=== PATIENT | male | born 1940 | race Two or more races ===

== ENCOUNTER 2019-10-04 11:14 | Inpatient (IN) | payer OTHER ==
[~2019-10-04] VITALS: Ht 165.1 cm; Wt 76.2 kg
[2019-10-04] MEDS ORDERED: FORTAMET1000 MG (11:29)
--- NOTE | 2019-10-04 12:21 | NUR ---
PACIENTE ALERTA Y ORIENTADO EN L[place] CARSON ESFERAS, EL MISMO CON REFERIDO R/O DE CHF. SE REALIZA EKG Y SE PRESENTA A . PACIENTE COLOCADO EN AREA DE CHEST PAIN CONECTADO A MONITOR CARDIACO Y OXIMETRIA DE PULSO. SE OBSERVA PACIENTE CON FATIGA LEVE. SE BOB EN POSICION ROCHA EN ESPERA DE EVALUACION MEDICA.
--- NOTE | 2019-10-04 12:47 | NUR ---
PTE EVALUADO POR EL DR NICOLE QUIEN ORDENA EL [place]. SE ORIENTA SOBRE EL MISMO, LO CUAL REFIERE ENTENDER. MS N ANNY REALIZA PRUEBAS DE LABORATORIO Y CANALIZA EN MANO LT #18 EL MISMO PATENTE Y DENVER DE EDEMA O ERITEMA. SE ADMINISTRA MEDICAMENTO MUNIRA ORDEN MEDICA Y SIGUIENDO MEDIDAS ASEPTICAS. SE MANTIENE PTE BAJO OBSERVACION EN YUNIEL NIVEL MAS BAJO, LUGO DE IDENTIFICACION Y BARANDAS ELEVADAS, CONECTADO A MONITOR CARDIACO Y OXIMETRIA DE PULSO.
--- NOTE | 2019-10-04 15:58 | NUR ---
3:00PM SE RECIBE PTE ALERTA Y ORIENTADO X3 EN YUNIEL CON BARANDAS ELEVADAS. SE RECIBE PTE CONECTADO A MONITOR CARDIACO Y OXIMETRIA. SE RECIBE PTE CANALIZADO EN MANO IZQUIERDA AREA DENVER DE EDEMA Y DE ENROJECIMIENTO. 3:30PM SE LE NOTIFICA A BRADICARDIA DEL PTE HASTA 35P SINUSAL[address] DR. NICOLE REFIERE QUE SE MANTENGA PTE BAJO OBSERVACION.
--- NOTE | 2019-10-04 16:43 | NUR ---
SE RECIBE PTE DESDE LA UNIDAD DE CHEST PAIN A ICU/2, PTE MASCULINO DE 81 YRS,PTE ALERTA X 3, SE ACOMODA EN CAMA ICU/2 # 3 CON BARANDAS ELEVADAS POR CASTRO SEGURIDAD,SE CONECTA A MONITOR CARDIACO CON OXIMETRIA DE PULSO CONTINUO,PTE H/L PATENTE Y DENVER DE EDEMA Y/O ERITEMA EN AREA DE VENOPUNCION,PTE ORINANDO ESPONTANEO, SE ORIENTA A PTE Y A FAMILIAR SOBRE NORMAS DE LA UNIDAD EL CUAL REFIEREN ENTENDER,PTE EN ESPERA DE CONSULTA DE MEDICINA INTERNA,SE OBSERVARAN POR CAMBIOS EN CASTRO CONDICION DE MAYANK.
--- NOTE | 2019-10-04 17:27 | NUR ---
SE LE OFRECE A PTE ALIMENTOS EL CUAL TOLERA.
[2019-10-04] MEDS ORDERED: ARICEPT10 MG (17:41)
[2019-10-04] MEDS ORDERED: LIPITOR40 MG (17:42)
[2019-10-04] MEDS ORDERED: TRADJENTA5 MG (17:42)
[2019-10-04] MEDS ORDERED: FOLIC ACID20 MG (17:42)
[2019-10-04] MEDS ORDERED: ASPIR 8181 MG (17:43)
[2019-10-04] MEDS ORDERED: METFORMIN HCL1000 M2 (17:43)
[2019-10-04] MEDS ORDERED: ZESTORETIC 20-1 EAC1 (17:43)
[2019-10-04] MEDS ORDERED: GLIMEPIRIDE4 MG (17:44)
[2019-10-04] MEDS ORDERED: AZOR 10-40 MG1 EACH (17:44)
[2019-10-04] MEDS ORDERED: HYDRALAZINE HCL50 MG (17:44)
[2019-10-04] MEDS ORDERED: ISOSORBIDE DINI30 MG (17:45)
[2019-10-04] MEDS ORDERED: MICROZIDE12.5 MG (17:45)
[2019-10-04] MEDS ORDERED: CARVEDILOL ER40 MG (17:45)
[2019-10-04] MEDS ORDERED: TAMS0.4C (17:46)
--- NOTE | 2019-10-04 17:52 | NUR ---
ESPOSA DE PACIENTE ENTREGA LISTA DE MEDICAMENTOS Y SE DOCUMENTA EN EL SISTEMA.
[2019-10-06] MEDS ORDERED: CARVEDILOL ER40 MG PO (08:19)
[2019-10-06] MEDS ORDERED: LASIX40 MG PO (08:19)
[2019-10-06] MEDS ORDERED: IRBESARTAN150 MG PO (08:19)
[2019-10-06] MEDS ORDERED: LIPITOR40 MG PO (08:19)
== END 2019-10-06 13:03 | disposition home or self-care (01) | DRG 293 ==
LOC: ER 11:14 → MEDI 21:00 → SEC-K 21:00 → MEDI 23:55
PROVIDERS: ADMIT Internal Medicine
PROC: 4A12X4Z Monitoring of Cardiac Electrical Activity, External Approach (ICD-10-PCS; principal; 2019-10-05)
PROC: B246ZZZ Ultrasonography of Right and Left Heart (ICD-10-PCS; 2019-10-05)
DX: I11.0 Hypertensive heart disease with heart failure (principal); I50.20 Unspecified systolic (congestive) heart failure; I34.0 Nonrheumatic mitral (valve) insufficiency; I70.0 Atherosclerosis of aorta; I07.1 Rheumatic tricuspid insufficiency; E11.9 Type 2 diabetes mellitus without complications

== ENCOUNTER 2021-04-23 13:58 | Inpatient (IN) | payer OTHER ==
[~2021-04-23] VITALS: Ht 165.1 cm; Wt 80.7 kg
[~2021-04-23 13:58] MED LIST: ARICEPT10 MG; ASPIR 8181 MG; AZOR 10-40 MG1 EACH; CARVEDILOL ER40 MG; CARVEDILOL ER40 MG PO; FOLIC ACID20 MG; FORTAMET1000 MG; GLIMEPIRIDE4 MG; HYDRALAZINE HCL50 MG; IRBESARTAN150 MG PO; ISOSORBIDE DINI30 MG; LASIX40 MG PO; LIPITOR40 MG; LIPITOR40 MG PO; METFORMIN HCL1000 M2; MICROZIDE12.5 MG; TAMS0.4C; TRADJENTA5 MG; ZESTORETIC 20-1 EAC1
[2021-04-23] MEDS ORDERED: ELIQUIS2.5 MG (14:25)
[2021-04-23] MEDS ORDERED: HYDRALAZINE HCL50 MG PO (14:26)
--- NOTE | 2021-04-23 15:28 | NUR ---
EVALUA PTE. SE EDUCA A PTE SOBRE [place] MEDICO. PTE REFIERE COMPRENDER. SE REALIZAN MUESTRAS DE LABORATORIO BAJO MEDIDAS ASEPTICAS. SE ADMINISTRA IV'S MUNIRA ORDEN MEDICA. SE NOTIFICA CT.
[2021-04-24] MEDS ORDERED: LISINOPRIL5 MG (11:30)
[2021-04-24] MEDS ORDERED: CLOPIDOGREL BIS75 MG (11:30)
[2021-04-24] MEDS ORDERED: CARVEDILOL3.125 M1 (11:30)
[2021-04-24] MEDS ORDERED: PANTOPRAZOLE SO40 MG (11:31)
== END 2021-04-25 15:34 | disposition home or self-care (01) | DRG 812 ==
LOC: ER 13:58 → MEDI 04-24 00:11
PROVIDERS: ADMIT Internal Medicine; ATTEND Internal Medicine
PROC: 30233N1 Transfusion of Nonautologous Red Blood Cells into Peripheral Vein, Percutaneous Approach (ICD-10-PCS; principal; 2021-04-24)
PROC: BW21ZZZ Computerized Tomography (CT Scan) of Abdomen and Pelvis (ICD-10-PCS; 2021-04-24)
PROC: BW25ZZZ Computerized Tomography (CT Scan) of Chest, Abdomen and Pelvis (ICD-10-PCS; 2021-04-24)
DX: D64.9 Anemia, unspecified (principal); N18.5 Chronic kidney disease, stage 5; I50.9 Heart failure, unspecified; I10 Essential (primary) hypertension; G20 Parkinson's disease; F03.90 Unspecified dementia, unspecified severity, without behavioral disturbance, psychotic disturbance, mood disturbance, and anxiety; Z20.822 Contact with and (suspected) exposure to COVID-19